=== PATIENT | female | born 1985 | race Caucasian/White ===

== ENCOUNTER 2018-04-18 18:25 | Inpatient (IN) | payer BC ==
[2018-04-18] MEDS ORDERED: PROMETHAZINE 25 MG/ML VIAL ONE (20:20)
[2018-04-18 20:21] LABS: Urine Blood NEGATIVE (NEG); Urine Glucose NEGATIVE (NEG); Urine Protein NEGATIVE (NEG)
[2018-04-18] MEDS ORDERED: FENTANYL CITR 100 MCG/2 ML ONE ×2 (20:21→23:41)
[2018-04-18] MEDS ORDERED: NA CHLORIDE 0.9% 1,000 ML ONE (20:21)
[2018-04-18 20:51] LABS: Urine Bacteria 20-50 /HPF (<20); Urine Culture Reflex Order NOT NEEDED; Urine RBC <5 /HPF (NONE SEEN)
[2018-04-18 20:53] LABS: Absolute Lymphocytes (CBC) 2.1 K/uL (0.7-4.9); Absolute Monocytes 0.8 K/uL (0.1-1.3); Absolute Neutrophil 8.6 K/uL (1.8-8.0); Basophils % 0.3 % (0-1.3); Eosinophils % 0.4 % (0-4.4); Lymphocytes % 17.9 % (15.3-44.8); MCV 90.3 fL (80-100); MPV 8.8 fL (7.6-11.3); Monocytes % 6.7 % (3.3-12.3); RBC Red Blood Cell Count 4.76 M/uL (3.86-4.86)
[2018-04-18 21:14] LABS: ALT/SGPT 26 U/L (12-78); AST/SGOT 13 U/L (15-37); Albumin 4.5 g/dL (3.4-5.0); Alkaline Phosphatase 66 U/L (45-117); BUN Blood Urea Nitrogen 9 mg/dL (7-18); Bicarbonate 28 mmol/L (21-32); Bilirubin Direct 0.2 mg/dL (0-0.2); Bilirubin Total 0.6 mg/dL (0.2-1.0); Glucose Level 91 mg/dL (74-106); Lipase 118 U/L (73-393); Potassium 3.7 mmol/L (3.5-5.1); Protein, Total 8.1 g/dL (6.4-8.2); Sodium Level 135 mmol/L (136-145)
--- NOTE | 2018-04-18 22:14 | RAD REPORT ---
EXAM DESCRIPTION: CTAbdomen Pelvis W Contrast - 04/18/2018 9:59 pm CLINICAL HISTORY: Abdominal pain. ABD PAIN COMPARISON: <Comparisons> TECHNIQUE: Biphasic CT imaging of the abdomen and pelvis was performed with 100 ml non-ionic IV cont rast. All CT scans are performed using dose optimization technique as appropriate and may include automated exposure control or mA/KV adjustment according to patient size. FINDINGS: The lung bases are clear. The liver, spleen, pancreas, adrenal glands and kidneys are within normal limits. No bowel obstruction, free air, free fluid or abscess. Prominent sigmoid diverticulosis is present wi thout diverticulitis. The appendix is dilated to 17 mm and inflamed compatible with acute appendiciti s. No evidence of significant lymphadenopathy. No suspicious bony findings. IMPRESSION: Acute appendicitis.
--- NOTE | 2018-04-18 22:28 | ER ---
Nurse's Notes [facility] Name: Kitty Tucker Age: 32 yrs Sex: Female : 1985 Arrival Date: 04/18/2018 Time: 18:28 Bed 19 Private MD: Reynold Larson E Diagnosis: Acute appendicitis Presentation: 04/18 18:40 Presenting complaint: Patient states: RLQ Abdominal pain since 0300 this morning. aj1 Reports nausea, Denies vomiting, diarrhea, fever. Transition of care: patient was not received from another setting of care. Onset of symptoms was April 18, 2018 at 03:00. Risk Assessment: Do you want to hurt yourself or someone else? Patient reports no desire to harm self or others. Initial Sepsis Screen: Does the patient meet any 2 criteria? No. Patient's initial sepsis screen is negative. Does the patient have a suspected source of infection? No. Patient's initial sepsis screen is negative. Care prior to arrival: None. 18:40 Method Of Arrival: Ambulatory aj1 18:40 Acuity: YAJAIRA 3 aj1 Triage Assessment: 18:42 General: Appears in no apparent distress. comfortable, Behavior is calm, cooperative, aj1 appropriate for age. Pain: Complains of pain in right lower quadrant Pain radiates to abdomen Pain currently is 7 out of 10 on a pain scale. Quality of pain is described as shooting. Neuro: Level of Consciousness is awake, alert, obeys commands. Cardiovascular: Patient's skin is warm and dry. Respiratory: Airway is patent Respiratory effort is even, unlabored, Respiratory pattern is regular, symmetrical. GI: Abdomen is flat, non-distended, Reports lower abdominal pain, nausea, Patient currently denies diarrhea, vomiting. Derm: Skin is pink, warm \T\ dry. normal. 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 - Social history:: Smoking status: Patient uses tobacco products, smokes one-half pack cigarettes per day. - Ebola Screening: : Patient denies travel to an Ebola-affected area in the 21 days before illness onset. Screenin:44 Abuse screen: Denies threats or abuse. Denies injuries from another. Nutritional lp1 screening: No deficits noted. Tuberculosis screening: No symptoms or risk factors identified. Fall Risk None identified. Assessment: 20:00 General: Appears uncomfortable, Behavior is calm, cooperative, appropriate for age. lp1 Pain: Complains of pain in right upper quadrant and right lower quadrant Pain currently is 5 out of 10 on a pain scale. Quality of pain is described as aching, Alleviated by heat application. Neuro: Level of Consciousness is awake, alert, obeys commands. Cardiovascular: Patient's skin is warm and dry. Respiratory: Respiratory effort is even, unlabored. GI: Abdomen is non-distended, Bowel sounds present X 4 quads. Abdomen is tender to palpation in right upper quadrant and right lower quadrant. : Denies burning with urination. EENT: No signs and/or symptoms were reported regarding the EENT system. Derm: Skin is pink, warm \T\ dry. Musculoskeletal: Circulation, motion, and sensation intact. 20:10 Reassessment: CT notified patient completing oral contrast. lp1 21:30 Reassessment: Patient appears in no apparent distress at this time. No changes from lp1 previously documented assessment. Patient and/or family updated on plan of care and expected duration. Pain level reassessed. Aware of CT coming soon. 22:30 Reassessment: Patient appears in no apparent distress at this time. Patient and/or lp1 family updated on plan of care and expected duration. Pain level reassessed. Patient is alert, oriented x 3, equal unlabored respirations, skin warm/dry/pink. Patient states pain tolerable at this time. 23:14 Reassessment: OR nurse at bedside to transport patient. lp1 Vital Signs: 18:42 BP 134 / 94; Pulse 93; Resp 18; Temp 98.4; Pulse Ox 97% on R/A; Weight 77.11 kg (R); aj1 Height 5 ft. 6 in. (167.64 cm) (R); Pain 7/10; 20:45 BP 128 / 96; Pulse 74; Resp 16; Pulse Ox 98% on R/A; lp1 21:44 BP 130 / 90; Pulse 85; Resp 18; Pulse Ox 100% on R/A; lp1 23:00 BP 130 / 87; Pulse 79; Resp 16; Pulse Ox 100% on R/A; lp1 18:42 Body Mass Index 27.44 (77.11 kg, 167.64 cm) aj1 ED Course: 18:28 Patient arrived in ED. jb7 18:29 Reynold Larson MD is Private Physician. jb7 18:42 Triage completed. aj1 18:42 Arm band placed on Patient placed in waiting room, Patient notified of wait time. aj1 19:34 [facility] Tub[facility]C [facility] snw 19:34 Mp Buchnaan MD is Attending Physician. snw 19:36 Komal Gonzales RN is Primary Nurse. lp1 20:30 Inserted saline lock: 20 gauge in right antecubital area, using aseptic technique. lp1 Blood collected. 20:44 Patient has correct armband on for positive identification. Placed in gown. Call light lp1 in reach. Pulse ox on. NIBP on. 21:[address] via wheelchair. lp1 21:59 CT Abd/Pelvis - W/Contrast In Process Unspecified. EDMS 22:26 Ronn Esquivel MD is Hospitalizing Provider. snw 23:07 No provider procedures requiring assistance completed. Patient admitted, IV remains in lp1 place. Administered Medications: 20:30 Drug: NS 0.9% 1000 ml Route: IV; Rate: 125 ml/hr; Site: right antecubital; lp1 23:07 Follow up: IV Status: Infusion continued upon admission lp1 20:30 Drug: fentaNYL (PF) 25 mcg Route: IVP; Site: right antecubital; lp1 21:42 Follow up: Response: Pain is decreased lp1 20:30 Drug: Phenergan 6.25 mg Route: IVP; Site: right antecubital; lp1 21:42 Follow up: Response: Nausea is decreased lp1 22:55 Drug: Mefoxin 1 grams Route: IVPB; Infused Over: 30 mins; Site: right antecubital; lp1 23:07 Follow up: Response: No adverse reaction; IV Status: Completed infusion lp1 Outcome: 22:27 Decision to Hospitalize by Provider. snw 23:07 Condition: stable lp1 23:07 Instructed on the need for admit. 23:14 Admitted to OR accompanied by nurse, family with patient, via stretcher, with chart. lp1 23:15 Patient left the ED. lp1 Signatures: Dispatcher [employer] EDVijaya Muniz RN RN aj1 Shea Tubbs, CALKER-C CALKER-Csnw Komal Gonzales RN RN lp1 Rafa Corbin jb7
--- NOTE | 2018-04-18 22:28 | EDPHYS ---
Physician Documentation [facility] Name: Kitty Tucker Age: 32 yrs Sex: Female : 1985 Arrival Date: 04/18/2018 Time: 18:28 Bed 19 Private MD: Reynold Larson E ED Physician Mp Buchanan HPI: 04/18 20:02 This 32 yrs old Female presents to ER via Ambulatory with complaints of snw Abdominal Pain. 20:02 The patient presents with abdominal pain right lower quadrant. Onset: The snw symptoms/episode began/occurred suddenly, at 03:00, and became worse. The symptoms do not radiate. The symptoms are described as steady. Severity of pain: At its worst the pain was moderate. The patient has not experienced similar symptoms in the past. The patient has not recently seen a physician. x 7 mo. 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 - Social history:: Smoking status: Patient uses tobacco products, smokes one-half pack cigarettes per day. - Ebola Screening: : Patient denies travel to an Ebola-affected area in the 21 days before illness onset. ROS: 20:02 Constitutional: Negative for fever, chills, and weight loss, Eyes: Negative for injury, snw pain, redness, and discharge, ENT: Negative for injury, pain, and discharge, Neck: Negative for injury, pain, and swelling, Cardiovascular: Negative for chest pain, palpitations, and edema, Respiratory: Negative for shortness of breath, cough, wheezing, and pleuritic chest pain, Back: Negative for injury and pain, : Negative for injury, bleeding, discharge, and swelling, MS/Extremity: Negative for injury and deformity, Skin: Negative for injury, rash, and discoloration, Neuro: Negative for headache, weakness, numbness, tingling, and seizure. 20:02 Abdomen/GI: Positive for abdominal pain. Exam: 20:01 Constitutional: This is a well developed, well nourished patient who is awake, alert, snw and in no acute distress. Head/Face: Normocephalic, atraumatic. Eyes: Pupils equal round and reactive to light, extra-ocular motions intact. Lids and lashes normal. Conjunctiva and sclera are non-icteric and not injected. Cornea within normal limits. Periorbital areas with no swelling, redness, or edema. ENT: Nares patent. No nasal discharge, no septal abnormalities noted. Tympanic membranes are normal and external auditory canals are clear. Oropharynx with no redness, swelling, or masses, exudates, or evidence of obstruction, uvula midline. Mucous membranes moist. Neck: Trachea midline, no thyromegaly or masses palpated, and no cervical lymphadenopathy. Supple, full range of motion without nuchal rigidity, or vertebral point tenderness. No Meningismus. Chest/axilla: Normal chest wall appearance and motion. Nontender with no deformity. No lesions are appreciated. Cardiovascular: Regular rate and rhythm with a normal S1 and S2. No gallops, murmurs, or rubs. Normal PMI, no JVD. No pulse deficits. Respiratory: Lungs have equal breath sounds bilaterally, clear to auscultation and percussion. No rales, rhonchi or wheezes noted. No increased work of breathing, no retractions or nasal flaring. Back: No spinal tenderness. No costovertebral tenderness. Full range of motion. Skin: Warm, dry with normal turgor. Normal color with no rashes, no lesions, and no evidence of cellulitis. MS/ Extremity: Pulses equal, no cyanosis. Neurovascular intact. Full, normal range of motion. Neuro: Awake and alert, GCS 15, oriented to person, place, time, and situation. Cranial nerves II-XII grossly intact. Motor strength 5/5 in all extremities. Sensory grossly intact. Cerebellar exam normal. Normal gait. 20:01 Abdomen/GI: Inspection: abdomen appears normal, Bowel sounds: normal, Palpation: moderate abdominal tenderness, in the right upper quadrant and right lower quadrant. Vital Signs: 18:42 BP 134 / 94; Pulse 93; Resp 18; Temp 98.4; Pulse Ox 97% on R/A; Weight 77.11 kg (R); aj1 Height 5 ft. 6 in. (167.64 cm) (R); Pain 7/10; 20:45 BP 128 / 96; Pulse 74; Resp 16; Pulse Ox 98% on R/A; lp1 21:44 BP 130 / 90; Pulse 85; Resp 18; Pulse Ox 100% on R/A; lp1 23:00 BP 130 / 87; Pulse 79; Resp 16; Pulse Ox 100% on R/A; lp1 18:42 Body Mass Index 27.44 (77.11 kg, 167.64 cm) aj1 MDM: 19:35 Patient medically screened. snw 22:07 Data reviewed: vital signs, nurses notes. Data interpreted: Pulse oximetry: on room air snw is 100 %. Interpretation: normal. Counseling: I had a detailed discussion with the patient and/or guardian regarding: the historical points, exam findings, and any diagnostic results supporting the discharge/admit diagnosis, the presence of at least one elevated blood pressure reading (>120/80) during this emergency department visit, lab results, radiology results. ED course: just returned per W/C from CT. 22:25 Physician consultation: Ronn Esquivel MD was called at 22:25, was contacted at 22:26, snw regarding admission, patient's condition. 04/18 19:17 Order name: Urine Culture [facility] 04/18 19:17 Order name: Urine Microscopic Only; Complete Time: 21:06 [facility] 04/18 19:55 Order name: Basic Metabolic Panel; Complete Time: 21:14 [facility] 04/18 19:55 Order name: CBC with Diff; Complete Time: 21:06 [facility] 04/18 19:55 Order name: Creatinine for Radiology; Complete Time: 21:13 [facility] 04/18 19:55 Order name: Hepatic Function; Complete Time: 21:14 [facility] 04/18 19:55 Order name: Lipase; Complete Time: 21:14 [facility] 04/18 19:55 Order name: CT Abd/Pelvis - W/Contrast; Complete Time: 22:17 [facility] 04/18 20:14 Order name: Urine Dipstick--Ancillary (enter results) ms 04/18 20:14 Order name: Urine --Ancillary (enter results) ms 04/18 20:14 Order name: Urine Dipstick-Ancillary; Complete Time: 20:22 [facility] 04/18 20:14 Order name: Urine --Ancillary; Complete Time: 20:22 [facility] 04/18 19:17 Order name: Urine Test (obtain specimen); Complete Time: 20:15 snw 04/18 19:17 Order name: Urine Dipstick-Ancillary (obtain specimen); Complete Time: 20:15 snw 04/18 19:55 Order name: IV Saline Lock; Complete Time: 20:42 snw 04/18 19:55 Order name: Labs collected and sent; Complete Time: 20:42 snw 04/18 22:18 Order name: NPO; Complete Time: 22:47 snw Administered Medications: 20:30 Drug: NS 0.9% 1000 ml Route: IV; Rate: 125 ml/hr; Site: right antecubital; lp1 23:07 Follow up: IV Status: Infusion continued upon admission lp1 20:30 Drug: fentaNYL (PF) 25 mcg Route: IVP; Site: right antecubital; lp1 21:42 Follow up: Response: Pain is decreased lp1 20:30 Drug: Phenergan 6.25 mg Route: IVP; Site: right antecubital; lp1 21:42 Follow up: Response: Nausea is decreased lp1 22:55 Drug: Mefoxin 1 grams Route: IVPB; Infused Over: 30 mins; Site: right antecubital; lp1 23:07 Follow up: Response: No adverse reaction; IV Status: Completed infusion lp1 Disposition: 04/19 03:05 Co-signature as Attending Physician, Mp Buchanan MD. [facility] Disposition: 04/18/18 22:27 Hospitalization ordered by Ronn Esquivel for Inpatient Admission. Preliminary diagnosis is Acute appendicitis. - [facility]. - Status is Inpatient Admission. lp1 - Condition is Stable. - Problem is new. - Symptoms are unchanged. UTI on Admission? No Signatures: Dispatcher [employer] EDWI Vijaya Medel RN RN aj1 Callie Tompkins RN RN kl Lam, Pin, MD MD pkl Shea Tubbs, SAP PROJECT MANAGER-C SAP PROJECT MANAGER-Komal Beatyt RN RN lp1 Corrections: (The following items were deleted from the chart) 04/18 22:54 22:27 Hospitalization Ordered by Ronn Esquivel MD for Inpatient Admission. Preliminary kl diagnosis is Acute appendicitis. Bed requested for Telemetry/MedSurg (Inpatient). Status is Inpatient Admission. Condition is Stable. Problem is new. Symptoms are unchanged. UTI on Admission? No. snw 22:55 22:54 04/18/2018 22:27 Hospitalization Ordered by Ronn Esquivel MD for Inpatient kl Admission. Preliminary diagnosis is Acute appendicitis. Bed requested for Telemetry/MedSurg (Inpatient). Status is Inpatient Admission. Condition is Stable. Problem is new. Symptoms are unchanged. UTI on Admission? No. kl 23:15 22:55 04/18/2018 22:27 Hospitalization Ordered by Ronn Esquivel MD for Inpatient lp1 Admission. Preliminary diagnosis is Acute appendicitis. Bed requested for [facility]. Status is Inpatient Admission. Condition is Stable. Problem is new. Symptoms are unchanged. UTI on Admission? No. kl
[2018-04-18] MEDS ORDERED: CEFOXITIN/SWI 1gm 1 GM/10 ML SYR ONE (22:52)
[2018-04-18 23:21] VITALS: O2SAT 100
[2018-04-18] MEDS ORDERED: Ringers Lactate 1,000 ML IV ONE (23:30)
[2018-04-18] MEDS ORDERED: SUCCINYLCHOLINE 20 MG/ML (10 ML) IV ONE (23:38)
[2018-04-18] MEDS ORDERED: PROPOFOL 200 MG/20 ML VIAL IV ONE (23:41)
[2018-04-18] MEDS ORDERED: MIDAZOLAM HCL 2 MG/2 ML INJ ONE (23:41)
--- NOTE | 2018-04-18 23:43 | P.BOP ---
Preoperative diagnosis: acute appendicitis Postoperative diagnosis: SAME Primary procedure: Laparoscopic appendectomy Estimated blood loss: <10cc Specimen: nicolas Findings: as above Anesthesia: General Complications: None Transferred to: Recovery Room Condition: Good
[2018-04-19] MEDS ORDERED: ROCURONIUM 50 MG/5 ML VIAL IV ONE (00:03)
[2018-04-19] MEDS ORDERED: FENTANYL CITR 100 MCG/2 ML ONE (00:04)
[2018-04-19] MEDS ORDERED: NEOSTIGMINE 1 MG/ML -5 ML SYRINGE ONE (00:10)
[2018-04-19] MEDS ORDERED: GLYCOPYRROLATE 0.2 MG/ML SYR ONE (00:10)
[2018-04-19] MEDS ORDERED: ONDANSETRON HCL 40 MG/20 ML VIAL ONE (00:21)
[2018-04-19] MEDS ORDERED: KETOROLAC 30 MG/ML INJ ONE (00:34)
[2018-04-19] MEDS: MEPERIDINE HCL 50 MG/ML AMP ONE ×4 (00:35→00:52)
[2018-04-19] MEDS ORDERED: SODIUM CHLORIDE 0.9% 10ML INJ IV PRN (00:48)
[2018-04-19] MEDS ORDERED: HYDROCODONE/APAP 7.5/325 MG TAB PO PRN (00:48)
[2018-04-19] MEDS ORDERED: NA CHLORIDE 0.9% 1,000 ML IV SCH (00:48)
[2018-04-19] MEDS ORDERED: Morphine 2 MG/2 ML SYR IV PRN (00:48)
[2018-04-19] MEDS ORDERED: CEFOXITIN 1 GM in NA CHLORIDE 0.9% 100 ML IVPB SCH (00:48)
[2018-04-19] MEDS ORDERED: ONDANSETRON 4 MG/2 ML VIAL IV PRN (00:48)
[2018-04-19] MEDS ORDERED: Ringers Lactate 1,000 ML IV ONE (00:58)
--- NOTE | 2018-04-19 01:23 | HP ---
Date of Admission: 04/18/2018 Reason For Service: Right lower quadrant pain. Indications: This is the case of a 32-year-old patient, came to the ER complaining of right lower qu adrant tenderness with guarding, became worse since this morning. She states some nausea, some vomit ing. Denies any dysuria, hematuria, hematochezia, or melena. Denies any recent traveling out of the country. Denies any family member sick at home. She is in room #7, with no c omplications. Allergies: NONE. Medications: Adderall. Past Medical History: ADD. Family History: Noncontributory. Social History: She does not drink alcohol. She smokes half a pack a day. Review of Systems: Constitutional: Denies any fevers or chills. Gastrointestinal: As above. Respiratory: Denies any shortness of breath. Genitourinary: Denies any dysuria, hematuria, any vaginal discharge. Physical Examination: General: The patient is awake and alert. HEENT: Pupils are equal and reactive, anicteric. Neck: Supple. Chest: Clear. Abdomen: Right lower quadrant tenderness with guarding and rebound. Psoas sign positive. Rovsing s ign positive. Pelvic: Deferred. Breasts: Deferred. Rectal: Deferred. Extremities: Good capillary refill. Neuro: Cranial nerves 2 through 12 grossly within normal limits. Laboratory Data: Blood work shows WBC count of 11.5 with hemoglobin of 14.8, sodium is 135, creatini ne is 0.7. CAT scan of the abdomen and pelvis shows acute appendicitis. Assessment And Plan: A 32-year-old patient with acute appendicitis. Benefits, alternatives, and ris ks of laparoscopic, possible open appendectomy, were fully explained which include but not limited to infection, bleeding, damage to adjacent structures, anesthesia complication, myocardial infarction, even . She also understands this may not relieve any symptoms. She might need more than one enriquez rgical intervention. She understood and signed a consent. BIRDIE/ABIMBOLA Voice ID: [id number]
[2018-04-19 01:41] VITALS: BMI 26.6
--- NOTE | 2018-04-19 02:02 | OP ---
Date of Procedure: 04/19/2018 Surgeon: Ronn Esquivel MD Critical Care Nurse Specialist: None. Diagnosis: Acute appendicitis. Postoperative Diagnosis: Acute appendicitis. Procedure: Laparoscopic appendectomy. Estimated Blood Loss: Less than 10 cc. Anesthesia: General plus local. Indication For Procedure: This is the case of a 33-year-old patient, comes to us with above diagnosi s, emergently brought to the operating room with benefits, alternatives, and risks fully explained to the patient for laparoscopic possible open appendectomy which include but not limited to infection, bleeding, damage to adjacent structures, anesthesia complications, MA, or even . She also under stands this may not relieve any symptoms. She might need more than one surgical intervention. She u nderstood and signed a consent. Description Of Procedure: The patient was brought to the operating room and placed in supine positio n. Anesthesia was done without complication. Abdominal area was prepped and draped in usual sterile fashion. Marcaine 0.5% injected for local anesthetic, followed by sharp incision of the skin in the infraumbilical region. Incision was carried down to the fascia, which was opened under direct visio n. Peritoneum was encountered, opened under direct vision. Vicryl #1 placed inside the fascia. Has son trocar was carefully introduced. Pneumoperitoneum was obtained. I placed 2 more trocars, 5 mm e ach one of them in the suprapubic and left lower quadrant under direct visualization. Appendix was t hen visualized after no bleeding was obtained. We noticed an inflamed appendix. The base of the nicolas endix looked fair, so we created a window in the base of the appendix, transected that with an Endo G IA 45 mm 3.5 in the mesoappendix with an Endo YOON 45 mm 2.5. Appendix was removed from the abdominal cavity using an EndoCatch through the umbilical incision. The area was inspected once again. No osmel wel leak, no bleeding at that moment. After irrigation and suction, I visualized again for hemostasi s, and then we proceeded to remove the trocars under direct vision. Deflated the pneumoperitoneum an d closed the fascia with #1 Vicryl. Irrigated the subcutaneous tissue, closed that with 3-0 chromic, and then the skin with zhanna. Sponge count and instrument counts were correct. The patient rudy ated the procedure well. The patient was sent to Recovery in stable condition. HM/MODL Voice ID: [id number] Report ID: [id number]
[2018-04-19] MEDS ORDERED: CEFOXITIN/SWI 1gm 1 GM/10 ML SYR ONE (04:29)
[2018-04-19 06:35] LABS: Absolute Lymphocytes (CBC) 1.6 K/uL (0.7-4.9); Absolute Monocytes 0.7 K/uL (0.1-1.3); Absolute Neutrophil 6.1 K/uL (1.8-8.0); Basophils % 0.2 % (0-1.3); Eosinophils % 0.4 % (0-4.4); Hematocrit 35.1 % (36.0-45.0); Lymphocytes % 19.2 % (15.3-44.8); MCH 31.4 pg (27.0-35.0); MCV 89.9 fL (80-100); MPV 8.7 fL (7.6-11.3)
[2018-04-19 06:49] LABS: BUN Blood Urea Nitrogen 7 mg/dL (7-18); Bicarbonate 25 mmol/L (21-32); Glucose Level 91 mg/dL (74-106); Sodium Level 139 mmol/L (136-145)
[2018-04-19] MEDS ORDERED: MORPHINE 4 MG/ML SYR IV PRN (07:33)
[2018-04-19] MEDS ORDERED: PANTOPRAZOLE 40 MG INJ IVP SCH (09:00)
[2018-04-19] MEDS ORDERED: CEFOXITIN/SWI 1gm 1 GM/10 ML SYR IV SCH (12:00)
[2018-04-19 12:52] VITALS: BP 122/82; TEMP 98.8
--- NOTE | 2018-04-19 13:16 | P.DS ---
Admission Date: 04/18/18 Discharge Date: 04/19/18 Disposition: ROUTINE DISCHARGE Discharge Condition: GOOD Hospital Course: unremarkable Vital Signs/Physical Exam: Temp Pulse Resp BP Pulse Ox 98.8 F 81 14 122/82 100 04/19/18 11:50 04/19/18 11:50 04/19/18 11:50 04/19/18 11:50 04/19/18 07:18 General: Alert, In no apparent distress, Oriented x3, Cooperative HEENT: PERRLA, EOMI Neck: Supple Cardiovascular: No edema Gastrointestinal: Soft and benign Musculoskeletal: No erythema, No tenderness, No warmth Integumentary: No erythema Neurological: Normal speech Laboratory Data at Discharge: WBC 8.5 K/uL (4.3-10.9) D 04/19/18 05:52 Hgb 12.2 g/dL (12.0-15.0) D 04/19/18 05:52 Hct 35.1 % (36.0-45.0) L D 04/19/18 05:52 Plt Count 227 K/uL (152-406) 04/19/18 05:52 Sodium 139 mmol/L (136-145) 04/19/18 05:52 Potassium 4.0 mmol/L (3.5-5.1) 04/19/18 05:52 BUN 7 mg/dL (7-18) 04/19/18 05:52 Creatinine 0.50 mg/dL (0.55-1.3) L 04/19/18 05:52 Glucose 91 mg/dL (74-106) 04/19/18 05:52 Total Bilirubin 0.6 mg/dL (0.2-1.0) 04/18/18 20:30 AST 13 U/L (15-37) L 04/18/18 20:30 ALT 26 U/L (12-78) 04/18/18 20:30 Alkaline Phosphatase 66 U/L (45-117) 04/18/18 20:30 Lipase 118 U/L (73-393) 04/18/18 20:30 Home Medications: Vitamin [ VITAMIN*] 1 tab PO DAILY 09/28/17 Amox/Clavulanate [Augmentin 875-125 Tab] 1 each PO BID #10 tab 04/19/18 Codeine/APAP [Tylenol W/Codeine #3 tab] 1 tab PO Q4HP PRN #30 tab 04/19/18 Dextroamphetamine/Amphetamine [Adderall 20 mg Tablet] 20 tab PO BID 04/19/18 New Medications: Amox/Clavulanate [Augmentin 875-125 Tab] 1 each PO BID #10 tab Codeine/APAP [Tylenol W/Codeine #3 tab] 1 tab PO Q4HP PRN #30 tab PRN Reason: Pain Patient Discharge Instructions: keep area dry for 24h then may shower. Diet: Regular Activity: No lifting more than 10 lbs Followup: Ronn Esquivel MD [ACTIVE - CAN ADMIT] - 04/21/18 (Call the office on Saturday to make a follow-up appointment.)
== END 2018-04-19 13:10 | disposition home or self-care (01) | DRG 343 ==
LOC: ER 18:25 → ERHOLD 22:28 → 2ND-WC 04-19 01:18
PROVIDERS: ADMIT Surgery; ATTEND Surgery
PROC: 0DTJ4ZZ Resection of Appendix, Percutaneous Endoscopic Approach (ICD-10-PCS; principal; 2018-04-18 23:00)
DX: K35.80 Unspecified acute appendicitis (principal); F98.8 Other specified behavioral and emotional disorders with onset usually occurring in childhood and adolescence; F17.210 Nicotine dependence, cigarettes, uncomplicated
CPT/HCPCS: 36415; 74177; 80048; 80076; 81003; 81015; 81025; 83690; 85025; 87086; 87088; 88304; 96361; 96374; 96375; 99285; C9113; J0330; J0694; J2175; J2250; J2270; J2405; J2550; J2710; J3010; J7030; Q9967

== ENCOUNTER 2018-08-04 03:35 | Emergency (ER) | payer BC ==
[2018-08-04 04:37] LABS: Absolute Lymphocytes (CBC) 1.1 K/uL (0.7-4.9); Absolute Neutrophil 16.2 K/uL (1.8-8.0); Basophils % 0.3 % (0-1.3); Hematocrit 38.9 % (36.0-45.0); Lymphocytes % 5.9 % (15.3-44.8); MCH 30.8 pg (27.0-35.0); MCV 90.1 fL (80-100); MPV 9.2 fL (7.6-11.3); Monocytes % 5.5 % (3.3-12.3); RBC Red Blood Cell Count 4.32 M/uL (3.86-4.86)
[2018-08-04 05:03] LABS: ALT/SGPT 32 U/L (12-78); AST/SGOT 18 U/L (15-37); Albumin 3.9 g/dL (3.4-5.0); Alkaline Phosphatase 58 U/L (45-117); BUN Blood Urea Nitrogen 8 mg/dL (7-18); Bicarbonate 27 mmol/L (21-32); Bilirubin Direct 0.2 mg/dL (0-0.2); Bilirubin Total 0.7 mg/dL (0.2-1.0); Glucose Level 123 mg/dL (74-106); Lipase 103 U/L (73-393); Potassium 3.6 mmol/L (3.5-5.1); Protein, Total 7.2 g/dL (6.4-8.2); Sodium Level 137 mmol/L (136-145)
[2018-08-04 05:19] LABS: Blood Morphology Comment NOT SEEN (NOT SEEN); Platelet Estimate ADEQ; Urine White Blood Cell Casts OK
[2018-08-04 05:20] LABS: Urine Blood TRACE (NEG); Urine Glucose NEGATIVE (NEG); Urine Protein NEGATIVE (NEG); Urine pH 7.5 (5.0-7.0)
[2018-08-04] MEDS ORDERED: CIPROFLOXACIN 400mg IV 400 MG/200 ML BAG IV ONE (05:56)
[2018-08-04] MEDS ORDERED: METRONIDAZOLE 500mg IVPB 500 MG/100 ML BAG IV ONE (05:57)
[2018-08-04 06:13] LABS: Urine Bacteria >50 /HPF (<20); Urine Culture Reflex Order REFLEXED; Urine RBC NONE SEEN /HPF (NONE SEEN)
--- NOTE | 2018-08-04 06:17 | EDPHYS ---
Physician Documentation [facility] Name: Kitty Tucker Age: 33 yrs Sex: Female : 1985 Arrival Date: 08/04/2018 Time: 03:36 Bed 14 Private MD: ED Physician Marco A Godinez HPI: 08/04 04:53 This 33 yrs old Female presents to ER via Ambulatory with complaints of rn Abdominal Cramping. 04:53 The patient presents with abdominal pain in the lower abdomen. Onset: The rn symptoms/episode began/occurred yesterday. The symptoms do not radiate. Associated signs and symptoms: Pertinent positives: nausea and vomiting, Pertinent negatives: anorexia, blood in stools, chest pain, constipation, diarrhea, dysuria, fever, headache, hematuria, vaginal discharge, vomiting blood. The symptoms are described as achy, crampy. Modifying factors: The symptoms are alleviated by nothing, the symptoms are aggravated by touching the area, walking. Severity of pain: At its worst the pain was moderate in the emergency department the pain has improved. The patient has experienced a previous episode. REports lower abd cramping, began yesterday at 5PM, no fever, + nausea and vomiting, no diarrhea, tried to use bathroom but didn't help, reports about mid-cycle, no vaginal bleeding, no hematuria, no hx of kidney stones. 1 similar episode in past when had appendicitis. Hurts both RLQ and LLQ, comes in waves. . 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 - Social history:: Smoking status: Patient uses tobacco products, cigars. - Ebola Screening: : No symptoms or risks identified at this time. - Family history:: not pertinent. - Hospitalizations: : No recent hospitalization is reported. ROS: 04:53 Constitutional: Negative for fever, chills, and weight loss, Eyes: Negative for injury, rn pain, redness, and discharge, Neck: Negative for injury, pain, and swelling, Cardiovascular: Negative for chest pain, palpitations, and edema, Respiratory: Negative for shortness of breath, cough, wheezing, and pleuritic chest pain, Abdomen/GI: + lower abd pain and nausea/vomiting MS/Extremity: Negative for injury and deformity, Skin: Negative for injury, rash, and discoloration, Neuro: Negative for headache, weakness, numbness, tingling, and seizure. Exam: 04:53 Constitutional: This is a well developed, well nourished patient who is awake, alert, rn and in no acute distress. Head/Face: Normocephalic, atraumatic. ENT: MMM Cardiovascular: Regular rate and rhythm with a normal S1 and S2. No gallops, murmurs, or rubs. Normal PMI, no JVD. No pulse deficits. Respiratory: Lungs have equal breath sounds bilaterally, clear to auscultation and percussion. No rales, rhonchi or wheezes noted. No increased work of breathing, no retractions or nasal flaring. Abdomen/GI: soft, mild RLQ and LLQ tenderness Back: No spinal tenderness. No costovertebral tenderness. Full range of motion. Skin: Warm, dry, no evidence of cellulitis. MS/ Extremity: Pulses equal, no cyanosis. Neurovascular intact. Full, normal range of motion. Equal circumference. Neuro: Awake and alert, GCS 15, oriented to person, place, time, and situation. Cranial nerves II-XII grossly intact. Motor strength 5/5 in all extremities. Sensory grossly intact. Vital Signs: 03:40 BP 142 / 80; Pulse 105; Resp 19 S; Temp 98.8(O); Pulse Ox 97% on R/A; Weight 74.84 kg cc3 (R); Height 5 ft. 6 in. (167.64 cm) (R); Pain 8/10; 04:30 BP 135 / 95; Pulse 99; Resp 20 S; Pulse Ox 99% on R/A; cc3 05:43 BP 128 / 99; Pulse 101; Resp 18 S; Pulse Ox 98% on R/A; cc3 06:15 BP 138 / 93; Pulse 107; Resp 20 S; Pulse Ox 99% on R/A; cc3 03:40 Body Mass Index 26.63 (74.84 kg, 167.64 cm) cc3 MDM: 04:19 Patient medically screened. rn 06:12 Differential diagnosis: diverticulitis, Ectopic , non-specific abd pain, rn Ovarian Torsion, Ureterolithiasis, urinary tract infection, ovarian cyst, ruptured ovarian cyst. Data reviewed: vital signs, nurses notes, lab test result(s), radiologic studies, CT scan, ultrasound, and as a result, I will admit patient. Counseling: I had a detailed discussion with the patient and/or guardian regarding: the historical points, exam findings, and any diagnostic results supporting the discharge/admit diagnosis, lab results, radiology results, the need for further work-up and treatment in the hospital. Response to treatment: the patient's symptoms have mildly improved after treatment. Refusal of service: The patient/guardian displays adequate decision making capability and despite a detailed discussion of alternatives, benefits, risks, and consequences refuses: Admission to the hospital for further work-up and treatment. ED course: After long discussion with patient, I recommended observation in hospital due to combination of ruptured ovarian cyst as well as diverticulitis. Patient states just came back from vacation, is supposed to work, works, can't commit to staying for 1-2 days. States wants to go home, will return if worsens or cannot tolerate PO. Return precautions explained and understood. . 08/04 04:11 Order name: Basic Metabolic Panel; Complete Time: 05: 08/04 04:11 Order name: CBC with Diff; Complete Time: 05: 08/04 04:11 Order name: Creatinine for Radiology; Complete Time: 05: 08/04 04:11 Order name: Hepatic Function; Complete Time: : 08/04 04:11 Order name: Lipase; Complete Time: 05: 08/04 04:20 Order name: Urine Dipstick--Ancillary (enter results); Complete Time: 05: tn 08/04 04:20 Order name: Urine --Ancillary (enter results); Complete Time: 05: tn 08/04 04:28 Order name: CT Abd/Pelvis - W/Contrast rn 08/04 05:19 Order name: CBC Smear Scan; Complete Time: 05:27 [facility] 08/04 05:26 Order name: Urine Microscopic Only 08/04 05:41 Order name: Transvaginal Study Probe [facility] 08/04 06:15 Order name: Urine Culture [facility] 08/04 04:03 Order name: Urine Dipstick-Ancillary (obtain specimen); Complete Time: 04:14 bb 08/04 04:03 Order name: Urine Test (obtain specimen); Complete Time: 04:14 bb 08/04 04:11 Order name: IV Saline Lock; Complete Time: 04:25 bb 08/04 04:11 Order name: Labs collected and sent; Complete Time: 04:25 bb Administered Medications: 05:50 Drug: Flagyl 500 mg Volume: 100 ml; Route: IVPB; Rate: 200 ml/hr; Infused Over: 30 cc3 mins; Site: right antecubital; 06:20 Follow up: Response: No adverse reaction; IV Status: Completed infusion; IV Intake: cc3 100ml 06:20 Drug: Demerol 25 mg Route: IVP; Site: right antecubital; cc3 06:30 Drug: Cipro 400 mg Volume: 200 ml; Route: IVPB; Infused Over: 60 mins; Site: right cc3 antecubital; Disposition: 08/04/18 06:16 Discharged to Home. Impression: Hemorrhagic Ovarian Cyst, Diverticulitis of large intestine without perforation or abscess without bleeding. - Condition is Stable. - Discharge Instructions: Diverticulitis, Ovarian Cyst. - Prescriptions for Zofran ODT 4 mg Oral tablet,disintegrating - place 1 tablet by TRANSLINGUAL route every 8 hours As needed; 20 tablet. Flagyl 500 mg Oral Tablet - take 1 tablet by ORAL route every 8 hours for 10 days; 30 tablet. Tylenol- Codeine #3 300-30 mg Oral Tablet - take 1 tablet by ORAL route every 6 hours As needed; 20 tablet. Cipro 500 mg Oral Tablet - take 1 tablet by ORAL route every 12 hours for 10 days; 20 tablet. - Medication Reconciliation Form, Thank You Letter, Antibiotic Education, Prescription Opioid Use, Work release form form. - Follow up: Reynold Cat MD; When: As needed; Reason: Recheck today's complaints, Re-evaluation by your physician. - Problem is new. - Symptoms have improved. Signatures: Dispatcher [employer] EDWY To Pereira RN RN Le Duran RN RN bb Nieto, Roman, MD MD rn Cordel, Charlene cc3 Corrections: (The following items were deleted from the chart) 05:41 04:29 Pelvis Complete+US.TANYA ordered. EDMS EDMS 07:47 06:16 08/04/2018 06:16 Discharged to Home. Impression: Hemorrhagic Ovarian Cyst; sg Diverticulitis of large intestine without perforation or abscess without bleeding. Condition is Stable. Forms are Medication Reconciliation Form, Thank You Letter, Antibiotic Education, Prescription Opioid Use. Follow up: Reynold Cat; When: As needed; Reason: Recheck today's complaints, Re-evaluation by your physician. Problem is new. Symptoms have improved. rn
--- NOTE | 2018-08-04 06:17 | ER ---
Nurse's Notes [facility] Name: Kitty Tucker Age: 33 yrs Sex: Female : 1985 Arrival Date: 08/04/2018 Time: 03:36 Bed 14 Private MD: Diagnosis: Hemorrhagic Ovarian Cyst;Diverticulitis of large intestine without perforation or abscess without bleeding Presentation: 08/04 03:40 Presenting complaint: Patient states: Crampy lower abdominal pain since yesterday cc3 afternoon. Transition of care: patient was not received from another setting of care. Onset of symptoms was August 03, 2018. Risk Assessment: Do you want to hurt yourself or someone else? Patient reports no desire to harm self or others. Initial Sepsis Screen: Does the patient meet any 2 criteria? No. Patient's initial sepsis screen is negative. Does the patient have a suspected source of infection? No. Patient's initial sepsis screen is negative. Care prior to arrival: None. 03:40 Method Of Arrival: Ambulatory cc3 03:40 Acuity: YAJAIRA 3 cc3 Triage Assessment: 03:40 General: Appears in no apparent distress. uncomfortable, Behavior is calm, cooperative, cc3 appropriate for age. Pain: Complains of pain in lower abdomen. EENT: No signs and/or symptoms were reported regarding the EENT system. Neuro: Level of Consciousness is awake, alert, obeys commands, Oriented to person, place, time, situation, Appropriate for age. Cardiovascular: Denies chest pain. Respiratory: Airway is patent Respiratory effort is even, unlabored, Respiratory pattern is regular, symmetrical. GI: Reports lower abdominal pain, since yesterday afternoon. : No signs and/or symptoms were reported regarding the genitourinary system. Derm: No signs and/or symptoms reported regarding the dermatologic system. Musculoskeletal: Circulation, motion, and sensation intact. Range of motion: intact in all extremities. 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 - Social history:: Smoking status: Patient uses tobacco products, cigars. - Ebola Screening: : No symptoms or risks identified at this time. - Family history:: not pertinent. - Hospitalizations: : No recent hospitalization is reported. Screenin:40 Abuse screen: Denies threats or abuse. Denies injuries from another. Nutritional cc3 screening: No deficits noted. Tuberculosis screening: No symptoms or risk factors identified. Fall Risk Ambulatory Aid- None/Bed Rest/Nurse Assist (0 pts). Gait- Normal/Bed Rest/Wheelchair (0 pts) Mental Status- Oriented to own ability (0 pts). Assessment: 04:20 Reassessment: Patient appears in no apparent distress at this time. Patient and/or cc3 family updated on plan of care and expected duration. Pain level reassessed. Patient is alert, oriented x 3, equal unlabored respirations, skin warm/dry/pink. 05:30 Reassessment: Patient appears in no apparent distress at this time. Patient and/or cc3 family updated on plan of care and expected duration. Pain level reassessed. Patient is alert, oriented x 3, equal unlabored respirations, skin warm/dry/pink. 06:16 Reassessment: Patient appears in no apparent distress at this time. Patient and/or cc3 family updated on plan of care and expected duration. Pain level reassessed. Patient is alert, oriented x 3, equal unlabored respirations, skin warm/dry/pink. Patient ordered for discharge home after the IV antibiotics, instructed by Dr. Godinez that she'll go at around 0730H. 07:20 Reassessment: Patient appears in no apparent distress at this time. Patient and/or sg family updated on plan of care and expected duration. Pain level reassessed. Patient is alert, oriented x 3, equal unlabored respirations, skin warm/dry/pink. Vital Signs: 03:40 BP 142 / 80; Pulse 105; Resp 19 S; Temp 98.8(O); Pulse Ox 97% on R/A; Weight 74.84 kg cc3 (R); Height 5 ft. 6 in. (167.64 cm) (R); Pain 8/10; 04:30 BP 135 / 95; Pulse 99; Resp 20 S; Pulse Ox 99% on R/A; cc3 05:43 BP 128 / 99; Pulse 101; Resp 18 S; Pulse Ox 98% on R/A; cc3 06:15 BP 138 / 93; Pulse 107; Resp 20 S; Pulse Ox 99% on R/A; cc3 03:40 Body Mass Index 26.63 (74.84 kg, 167.64 cm) cc3 ED Course: 03:36 Patient arrived in ED. ds1 03:40 Arm band placed on right wrist. Patient notified of wait time. cc3 03:40 Patient has correct armband on for positive identification. Bed in low position. Call cc3 light in reach. Side rails up X 1. Pulse ox on. NIBP on. 03:41 Mela Davison is Primary Nurse. cc3 03:48 Triage completed. cc3 04:19 Marco A Godinez MD is Attending Physician. rn 04:20 Inserted saline lock: 22 gauge in right antecubital area, using aseptic technique. cc3 Blood collected. 05:[address] via wheelchair. kw1 05:24 CT Abd/Pelvis - W/Contrast In Process Unspecified. EDMS 05:26 Patient taken to ultrasound. via wheelchair. kw1 05:42 Transvaginal Study Probe In Process Unspecified. EDMS 06:14 Reynold Cat MD is Referral Physician. rn 07:19 To Pereira RN is Primary Nurse. sg 07:20 Awaiting: IV abx to finish infusing prior to dc to home. sg Administered Medications: 05:50 Drug: Flagyl 500 mg Volume: 100 ml; Route: IVPB; Rate: 200 ml/hr; Infused Over: 30 cc3 mins; Site: right antecubital; 06:20 Follow up: Response: No adverse reaction; IV Status: Completed infusion; IV Intake: cc3 100ml 06:20 Drug: Demerol 25 mg Route: IVP; Site: right antecubital; cc3 06:30 Drug: Cipro 400 mg Volume: 200 ml; Route: IVPB; Infused Over: 60 mins; Site: right cc3 antecubital; Intake: 06:20 IV: 100ml; Total: 100ml. cc3 Outcome: 06:16 Discharge ordered by . rn 07:47 Patient left the ED. sg Signatures: Dispatcher [employer] EDMS To Pereira RN Radha Johnston ds1 Marco A Godinez MD MD rn Wilhelm Callie kw1 Mela Davison cc3 Corrections: (The following items were deleted from the chart) 06:36 03:40 BP 142 / 80; Pulse 105bpm; Resp 19bpm; Spontaneous; Pulse Ox 97% RA; Temp 98.8F cc3 Oral; 74.84 kg Reported; Height 5 ft. 6 in. Reported; BMI: 26.6; cc3
[2018-08-04] MEDS ORDERED: MEPERIDINE HCL 25 MG/0.5 ML ONE (06:35)
[2018-08-04 07:54] VITALS: TEMP 98.8
[2018-08-04 07:58] VITALS: BP 138/93; O2SAT 99
--- NOTE | 2018-08-04 08:01 | RAD REPORT ---
EXAM DESCRIPTION: CT - Abdomen Pelvis W Contrast - 08/04/2018 6:44 am CLINICAL HISTORY: Crampy lower abdominal pain, prior appendectomy A preliminary report was provided at the time of the study and reviewed prior to final report. COMPARISON: CT imaging March 2018 TECHNIQUE: Biphasic, helical CT imaging of the abdomen and pelvis was performed following 100 ml non -ionic IV contrast. Oral contrast was given. All CT scans are performed using dose optimization technique as appropriate and may include automated exposure control or mA/KV adjustment according to patient size. FINDINGS: No suspicious findings in the lung bases. The liver, spleen, and pancreas show no focal findings. Liver attenuation is borderline to mildly fat ty infiltrated. No gallbladder or biliary tree abnormality. Symmetric renal function is seen with no hydronephrosis or suspicious renal mass. No pyelonephritis o r acute renal parenchymal process. Partially filled urinary bladder shows no suspicious finding. No p rimary uterine process. Right ovary is unremarkable. Left ovary contains a 2.3 centimeter cyst. Phleb oliths are seen in the pelvic floor. Stomach and small bowel show no significant findings. Moderate stool volume in the right-side colon e xtending to the splenic flexure. Patient has relatively prominent for age sigmoid diverticulosis. In the mid sigmoid colon there is an 8 centimeter long segment of circumferential wall thickening with e dematous/ inflammatory stranding in the adjacent fat. No free air or abscess. Trace amount of free fl uid is present adjacent to the involved colon and extending into the cul-de-sac. No free air or pneu matosis. No hernia, mass or bulky lymphadenopathy. No suspicious bony findings. IMPRESSION: Moderate severity acute sigmoid diverticulitis. Colon malignancy etiology is not excluded based on imaging but is considered quite unlikely. No mass lesions seen on a March examination. No abscess, free air or other emergent complication. Liver is borderline to mildly fatty infiltrated.
--- NOTE | 2018-08-04 08:05 | RAD REPORT ---
EXAM DESCRIPTION: US - Transvaginal Study Probe - 08/04/2018 5:40 am CLINICAL HISTORY: Abdominal pain and cramping Preliminary findings provided at the time of the study. COMPARISON: Pelvic ultrasound March 2017 TECHNIQUE: Endovaginal sonography was performed. FINDINGS: Nabothian cyst is present. Endometrium is 9 mm in thickness. No endometrial based mass or polyp identifiable. There is a good en dometrium-myometrium interface. In the posterior submucosal myometrium midportion of the uterus there is a 1.2 centimeter rounded area of slightly hypoechoic tissue. This is most likely a small fibroid. No other myometrial mass identifiable. Uterus is 6.5 x 4.1 x 5.6 cm. Right ovary is 3.3 x 1.3 x 2.6 cm. No dominant solid or cystic ovarian or adnexal finding on the righ t. Doppler evaluation shows a normal blood flow pattern of the right ovary. Left ovary is 3.3 x 3.2 x 2.8 cm. There is a 2.2 centimeter left ovarian cyst. A septation is present . There is echogenic debris within this cyst and this is likely sequela of intracyst hemorrhage. Dopp ler evaluation shows good blood flow of the ovarian stroma. No blood or fluid in the cul-de-sac. IMPRESSION: Approximately 2.2 centimeter mildly complex ovarian cyst. No other significant ovarian o r adnexal finding. No significant uterine finding. The patient does appear to have a 12 millimeter posterior fundal fibr oid abutting the sub mucosal margin. No primary endometrial process.
== END 2018-08-04 07:47 | disposition home or self-care (01) ==
LOC: ER 03:35
DX: N83.209 Unspecified ovarian cyst, unspecified side (principal); K57.32 Diverticulitis of large intestine without perforation or abscess without bleeding; F90.9 Attention-deficit hyperactivity disorder, unspecified type; Z72.0 Tobacco use
CPT/HCPCS: 36415; 74177; 76830; 80048; 80076; 81003; 81015; 81025; 83690; 85025; 87086; 87088; 96365; 96375; 99284; J0744; J2175; Q9967

== ENCOUNTER 2019-04-24 18:11 | Emergency (ER) | payer BC ==
--- NOTE | 2019-04-24 19:41 | RAD REPORT ---
EXAM DESCRIPTION: RAD - Foot Right 3 View - 04/24/2019 7:26 pm CLINICAL HISTORY: Foot pain COMPARISON: None. FINDINGS: No fracture, dislocation or periosteal reaction. No acute bone or joint finding. No air or foreign body in the soft tissues. IMPRESSION: Negative right foot examination.
--- NOTE | 2019-04-24 19:48 | ER ---
Nurse's Notes [facility] Name: Kitty Tucker Age: 34 yrs Sex: Female : 1985 Arrival Date: 04/24/2019 Time: 18:13 Bed 18 Private MD: Reynold Larson E Diagnosis: Pain in right foot Presentation: 04/24 18:31 Presenting complaint: Slipped while stepping out of truck at 1645, c/o right foot pain hb 8/10, unable to bear weight on right foot.. Pt reports she is 34 weeks , denies other injuries/abdominal pain. Transition of care: patient was not received from another setting of care. Onset of symptoms was April 24, 2019. Risk Assessment: Do you want to hurt yourself or someone else? Patient reports no desire to harm self or others. Initial Sepsis Screen: Does the patient meet any 2 criteria? No. Patient's initial sepsis screen is negative. Does the patient have a suspected source of infection? No. Patient's initial sepsis screen is negative. Care prior to arrival: Medication(s) given: Tylenol, at 1700. 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 - Social history:: Smoking status: Patient/guardian denies using tobacco. - Ebola Screening: : No symptoms or risks identified at this time. Screenin:50 Abuse screen: Denies threats or abuse. Nutritional screening: No deficits noted. em Tuberculosis screening: No symptoms or risk factors identified. Fall Risk None identified. Assessment: 18:50 General: Appears in no apparent distress. comfortable, Behavior is calm, cooperative. em Pain: Complains of pain in right foot Pain currently is 8 out of 10 on a pain scale. Neuro: Level of Consciousness is awake, alert, obeys commands, Oriented to person, place, time, situation. Cardiovascular: Capillary refill < 3 seconds Patient's skin is warm and dry. Respiratory: Airway is patent Respiratory effort is even, unlabored, Respiratory pattern is regular, symmetrical. GI: Abdomen is round non-distended. Derm: Skin is intact, is healthy with good turgor, Skin is pink, warm \T\ dry. Musculoskeletal: Capillary refill < 3 seconds, Range of motion: intact in right ankle Swelling present in right foot. 18:50 Reassessment: I agree with assessment completed by Darien Guido LVN. aa5 19:15 General: Appears in no apparent distress. comfortable, Behavior is calm, cooperative, rr5 appropriate for age. 19:15 Pain: Complains of pain in right ankle Pain does not radiate. Pain currently is 8 out rr5 of 10 on a pain scale. Quality of pain is described as aching, Pain began suddenly, Is intermittent. Neuro: Level of Consciousness is awake, alert, obeys commands, Oriented to person, place, time, situation, Appropriate for age. Cardiovascular: Capillary refill < 3 seconds Patient's skin is warm and dry. Respiratory: Airway is patent Respiratory effort is even, unlabored, Respiratory pattern is regular, symmetrical. GI: Abdomen is round. : No signs and/or symptoms were reported regarding the genitourinary system. Reports 8 months . EENT: No signs and/or symptoms were reported regarding the EENT system. Derm: Skin is intact, is healthy with good turgor, Skin is pink, warm \T\ dry. Skin temperature is warm. Musculoskeletal: Circulation, motion, and sensation intact. Capillary refill < 3 seconds, Swelling present in right ankle Reports pain in right ankle. 20:15 Reassessment: Patient appears in no apparent distress at this time. Patient is alert, rr5 oriented x 3, equal unlabored respirations, skin warm/dry/pink. discharge instruction given and explained without complaints made. Vital Signs: 18:33 BP 127 / 89; Pulse 97; Resp 16; Temp 98.5; Pulse Ox 100% on R/A; Weight 92.99 kg; hb Height 5 ft. 6 in. (167.64 cm); Pain 8/10; 19:05 BP 125 / 70; Pulse 85; Resp 19; Temp 98.4; Pulse Ox 98% ; rr5 20:16 BP 133 / 85; Pulse 90; Resp 17; Temp 98.4(O); Pulse Ox 99% ; rr5 18:33 Body Mass Index 33.09 (92.99 kg, 167.64 cm) hb Vitals: 19:28 Heart Tones 135 bpm. rr5 ED Course: 18:13 Patient arrived in ED. rg4 18:13 Reynold Larson MD is Private Physician. rg4 18:33 Triage completed. hb 18:33 Arm band placed on. hb 18:38 Kristy Costa FNP-C is [facility]. kb 18:38 Abhijit Armstrong MD is Attending Physician. kb 18:40 Darien Guido LVN is Primary Nurse. em 18:50 Patient has correct armband on for positive identification. Placed in gown. Bed in low em position. Adult w/ patient. 19:26 Foot Right 3 View XRAY In Process Unspecified. EDMS 19:30 Diet: Patient given snack. rr5 20:16 No provider procedures requiring assistance completed. Patient did not have IV access rr5 during this emergency room visit. Administered Medications: No medications were administered Outcome: 19:47 Discharge ordered by . kb 20:16 Discharged to home via wheelchair, with crutches, with family. rr5 20:16 Condition: stable 20:16 Discharge instructions given to patient, Instructed on discharge instructions, follow up and referral plans. crutch walking, Demonstrated understanding of instructions, follow-up care, crutch walking. 20:17 Patient left the ED. rr5 Signatures: Dispatcher [employer] EDAR Kristy Costa FNP-C POULTRY HUSBANDRY TEACHER-Keithb Darien Guido LVN LVN Renetta Ridley RN RN aa5 Debra Dawn RN RN Carla Coleman rg4 Orlando Santana RN RN rr5 Corrections: (The following items were deleted from the chart) 18:34 18:31 Presenting complaint: Slipped while stepping out of truck at 1645, c/o right foot hb pain 8/10, unable to bear weight on right foot. hb
--- NOTE | 2019-04-24 19:48 | EDPHYS ---
Physician Documentation [facility] Name: Kitty Tucker Age: 34 yrs Sex: Female : 1985 Arrival Date: 04/24/2019 Time: 18:13 Bed 18 Private MD: Reynold Larson E ED Physician Abhijit Armstrong HPI: 04/25 03:10 This 34 yrs old Female presents to ER via Wheelchair with complaints of Fall kb Injury, Ankle Injury. 03:10 The patient has not experienced similar symptoms in the past. The patient has not kb recently seen a physician. 03:10 The patient presents with an injury, pain, swelling, tenderness. The complaints affect kb the right foot. Context: The problem was sustained outdoors, resulted from the patient tripping, the patient is not able to bear weight, the patient is not able to ambulate. Onset: The symptoms/episode began/occurred just prior to arrival. Modifying factors: The symptoms are alleviated by nothing, the symptoms are aggravated by weight bearing. Associated signs and symptoms: Pertinent positives: swelling, Pertinent negatives: calf tenderness, fever, nausea, numbness, rash, tingling, vomiting, warmth, weakness. Severity of symptoms: At their worst the symptoms were moderate, in the emergency department the symptoms are unchanged. Pt reports she was putting her daughter in the carseat and fell when she stepped back. Pain to right foot, unable to bear weight. PHARMACOEPIDEMIOLOGIST: 04/24 18:33 2, Full Term 1, Living 1 hb Historical: - Home Meds: 18:33 Vitamin Oral tab 1 tab once daily [Active]; hb - PMHx: 18:33 ADD/ADHD; hb - PSHx: 18:33 Appendectomy; hb - Immunization history:: Adult Immunizations up to date. - Social history:: Smoking status: Patient/guardian denies using tobacco. - Ebola Screening: : No symptoms or risks identified at this time. ROS: 04/25 03:10 Constitutional: Negative for fever, chills, and weight loss, Cardiovascular: Negative kb for chest pain, palpitations, and edema, Respiratory: Negative for shortness of breath, cough, wheezing, and pleuritic chest pain, Abdomen/GI: Negative for abdominal pain, nausea, vomiting, diarrhea, and constipation, Back: Negative for injury and pain, Skin: Negative for injury, rash, and discoloration, Neuro: Negative for headache, weakness, numbness, tingling, and seizure. MS/extremity: Positive for injury or acute deformity, ecchymosis, pain, swelling, tenderness, of the right foot. Exam: 03:10 Constitutional: This is a well developed, well nourished patient who is awake, alert, kb and in no acute distress. Head/Face: Normocephalic, atraumatic. Neck: Trachea midline, no thyromegaly or masses palpated, and no cervical lymphadenopathy. Supple, full range of motion without nuchal rigidity, or vertebral point tenderness. No Meningismus. Chest/axilla: Normal chest wall appearance and motion. Nontender with no deformity. No lesions are appreciated. Cardiovascular: Regular rate and rhythm with a normal S1 and S2. No gallops, murmurs, or rubs. Normal PMI, no JVD. No pulse deficits. Respiratory: Lungs have equal breath sounds bilaterally, clear to auscultation and percussion. No rales, rhonchi or wheezes noted. No increased work of breathing, no retractions or nasal flaring. Abdomen/GI: Soft, non-tender, with normal bowel sounds. No distension or tympany. No guarding or rebound. No evidence of tenderness throughout. Skin: Warm, dry with normal turgor. Normal color with no rashes, no lesions, and no evidence of cellulitis. Neuro: Awake and alert, GCS 15, oriented to person, place, time, and situation. Cranial nerves II-XII grossly intact. Motor strength 5/5 in all extremities. Sensory grossly intact. Cerebellar exam normal. Normal gait. 03:10 Musculoskeletal/extremity: Extremities: grossly normal except: noted in the right foot: ecchymosis, pain, swelling, tenderness, ROM: intact in all extremities, Circulation is intact in all extremities. Sensation intact. Weight bearing: is unable to bear weight. Vital Signs: 04/24 18:33 BP 127 / 89; Pulse 97; Resp 16; Temp 98.5; Pulse Ox 100% on R/A; Weight 92.99 kg; hb Height 5 ft. 6 in. (167.64 cm); Pain 8/10; 19:05 BP 125 / 70; Pulse 85; Resp 19; Temp 98.4; Pulse Ox 98% ; rr5 20:16 BP 133 / 85; Pulse 90; Resp 17; Temp 98.4(O); Pulse Ox 99% ; rr5 18:33 Body Mass Index 33.09 (92.99 kg, 167.64 cm) hb MDM: 18:39 Patient medically screened. kb 04/25 03:12 Data reviewed: vital signs, nurses notes. Data interpreted: Pulse oximetry: on room air kb is 99 %. Interpretation: normal. Counseling: I had a detailed discussion with the patient and/or guardian regarding: the historical points, exam findings, and any diagnostic results supporting the discharge/admit diagnosis, radiology results, the need for outpatient follow up, a orthopedic surgeon, to return to the emergency department if symptoms worsen or persist or if there are any questions or concerns that arise at home. 04/24 18:43 Order name: Foot Right 3 View XRAY; Complete Time: 19:46 kb 04/24 18:43 Order name: FHT's; Complete Time: 19:29 kb Administered Medications: No medications were administered Disposition: 04/24/19 19:47 Discharged to Home. Impression: Pain in right foot. - Condition is Stable. - Discharge Instructions: Foot Sprain, Foot Contusion, [id number]. - Medication Reconciliation Form, Thank You Letter, Antibiotic Education, Prescription Opioid Use, Work release form form. - Follow up: Emergency Department; When: As needed; Reason: Worsening of condition. Follow up: Private Physician; When: 2 - 3 days; Reason: Recheck today's complaints, Continuance of care, Re-evaluation by your physician. Addendum: 04/27/2019 09:07 Co-signature as Attending Physician, Abhijit Armstrong MD I agree with the assessment and k dr plan of care. Signatures: Dispatcher [employer] Kristy Costa, GERENTOLOGICAL PHYSIOTHERAPIST-C GERENTOLOGICAL PHYSIOTHERAPIST-CkAbhijit Deleon MD MD [facility] Debra Dawn, WALE RN Orlando Whitney, WALE RN rr5 Corrections: (The following items were deleted from the chart) 04/24 20:17 19:47 04/24/2019 19:47 Discharged to Home. Impression: Pain in right foot. Condition is rr5 Stable. Forms are Medication Reconciliation Form, Thank You Letter, Antibiotic Education, Prescription Opioid Use. Follow up: Emergency Department; When: As needed; Reason: Worsening of condition. Follow up: Private Physician; When: 2 - 3 days; Reason: Recheck today's complaints, Continuance of care, Re-evaluation by your physician. kb
[2019-04-24 20:41] VITALS: TEMP 98.4
[2019-04-24 20:42] VITALS: BP 133/85; O2SAT 99
== END 2019-04-24 20:17 | disposition home or self-care (01) ==
LOC: ER 18:11
DX: M79.671 Pain in right foot (principal); F90.9 Attention-deficit hyperactivity disorder, unspecified type
CPT/HCPCS: 99284

== ENCOUNTER 2019-05-27 23:11 | Inpatient (IN) | payer BC ==
[2019-05-27] MEDS ORDERED: Ringers Lactate 1,000 ML IV SCH (23:45)
[2019-05-27] MEDS ORDERED: PROMETHAZINE 25 MG/ML VIAL IM PRN (23:59)
[2019-05-27] MEDS ORDERED: BUTORPHANOL 1 MG/ML INJ IV PRN (23:59)
[2019-05-27] MEDS ORDERED: MIDAZOLAM HCL 2 MG/2 ML INJ IV PRN (23:59)
[2019-05-27] MEDS ORDERED: Ringers Lactate 1,000 ML IV PRN (23:59)
[2019-05-27] MEDS ORDERED: MEPERIDINE HCL 25 MG/0.5 ML IV PRN (23:59)
[2019-05-27] MEDS ORDERED: METHYLERGONOVINE 0.2MG/ML AMP IM PRN (23:59)
[2019-05-28] MEDS ORDERED: ROPIVACAINE HCL 100 ML IV PRN (00:18)
[2019-05-28] MEDS ORDERED: FENTANYL CITR 100 MCG/2 ML IV ONE (00:18)
[2019-05-28] MEDS ORDERED: ROPIVACAINE HCL 2 MG/ML 100ML IV ONE (00:19)
[2019-05-28 00:21] LABS: Absolute Lymphocytes (CBC) 2.4 K/uL (0.7-4.9); Basophils % 0.6 % (0-1.3); Hematocrit 35.3 % (36.0-45.0); Lymphocytes % 18.4 % (15.3-44.8); MPV 9.7 fL (7.6-11.3); RBC Red Blood Cell Count 3.96 M/uL (3.86-4.86); Urine Appearance CLEAR; Urine Bilirubin NEGATIVE (NEG); Urine Blood NEGATIVE (NEG); Urine Color YELLOW; Urine Glucose NEGATIVE (NEG); Urine Protein NEGATIVE (NEG); Urine Specific Gravity <=1.005 (1.005-1.030); Urine Urobilinogen 0.2 mg/dL (0.2-1.0); Urine pH 6.5 (5.0-7.0)
[2019-05-28 00:23] LABS: Urine Microscopic Reflex NO UMIC
[2019-05-28 00:34] VITALS: BMI 34.3
[2019-05-28] MEDS ORDERED: OXYTOCIN/LR 20 UNIT/1,000 ML BAG IV ONE (02:53)
[2019-05-28] MEDS ORDERED: LIDOCAINE 1% MPF 30 ML VIAL ONE (03:37)
[2019-05-28] MEDS ORDERED: DIPHENHYDRAMINE 25 MG TAB/CAP PO PRN (04:53)
[2019-05-28] MEDS ORDERED: ACETAMINOPHEN 500 MG TAB PO PRN (04:53)
[2019-05-28] MEDS ORDERED: IBUPROFEN 200 MG TAB PO PRN (04:53)
[2019-05-28] MEDS ORDERED: DOCUSATE NA/SENNA CONC 1 TAB PO PRN (04:53)
[2019-05-28] MEDS ORDERED: BISACODYL 10 MG RECTAL SUPP RECT PRN (04:53)
[2019-05-28] MEDS ORDERED: Oxycodone HCl/Acetaminophen 1 TAB TAB PO PRN ×2 (04:53)
[2019-05-28] MEDS ORDERED: OXYTOCIN/LR 20 UNIT/1,000 ML BAG IV SCH (05:00)
--- NOTE | 2019-05-28 12:32 | PN ---
A 34-year-old 3, para 1, 38 weeks and 4 days on admission. Early labor, 4 cm, 70% effaced, v ertex, -1 station. Rh positive, immune to rubella. Negative beta strep screen. Elisa regular ly and admitted for delivery. Patient has progressed to complete. She had an epidural placed when s he was about 5 cm. Rupture of membranes was performed. Clear fluid. Patient is still at about 0 st ation and cannot feel to push. The epidural is at 10, maintenance. We will move it to 8 and see if she gets some sensation so she can push effectively and get the baby out right now. We will wait for her to labor the baby down. DOT/ABIMBOLA Voice ID: [id number] Report ID: [id number]
--- NOTE | 2019-05-28 12:35 | OP ---
Surgeon: Demar Maldonado MD This 34-year-old, 3, para 1, 38 weeks 5 days, Rh positive, immune to rubella. Negative beta strep screen. Came in labor, 4 cm on admission. During the labor, received epidural anesthesia at h er request. Second stage of approximately 30 minutes. Spontaneous vaginal delivery of a 7 pounds 12 ounce female. Apgars 9 and 9. Small second-degree midline laceration, sutured with 2-0 chromic. D uncan delivery of the placenta, which was inspected and noted to be intact and normal. A 300 cc or l ess blood loss. The patient tolerated all procedures well. Final Diagnoses: Intrauterine gestation, 38 weeks 5 days, spontaneous labor, vaginal delivery, epidu ral anesthesia. DOT/ABIMBOLA Voice ID: [id number] Report ID: [id number]
[2019-05-28 21:45] LABS: RPR (Rapid Plasma Reagin) NON-REACT (NON-REACT)
--- NOTE | 2019-05-29 06:15 | DS ---
Hospital Course: A 34-year-old 3, para 1, at 38 weeks 4 days on admission, 38 weeks 5 days o n delivery, came in active labor. During the labor, requested and received epidural anesthesia. Del desmond spontaneously of a 7-pound 12-ounce female. Apgars 9 and 9. A very small second-degree lacera tion, repaired with 2-0 chromic. Zhao delivery of the placenta. Estimated blood loss 300 mL. Lakhwinder centa inspected and noted be intact and normal. , afebrile, ambulating and voiding. Will be dismissed tomorrow morning to report back to my office in 6 weeks for followup, to report any temp erature elevation of 100 degrees or greater, severe pain, heavy bleeding, or any other type of abnorm alities. No post-epidural problems. She is Rh positive. Immune to Rubella. Tdap has been discusse d during the and offered. 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 Final Diagnoses: Term intrauterine at 38 weeks 5 days, spontaneous labor and delivery, epi dural anesthesia. DOT/ABIMBOLA Voice ID: [id number] Report ID: [id number]
--- NOTE | 2019-05-29 09:12 | PN ---
We went over dismissal instructions again today. Flu shot offered. She can come to the office since the hospital does not have them yet. No complaints or problems from yesterday. She knows she has prescription for analgesics if she wants it. Says she is having some mild after pains, but no other problems. Lochia is normal. Doing well . Dismissal summary has been dictated. DOT/ABIMBOLA Voice ID: [id number] Report ID: [id number]
[2019-05-29 09:35] VITALS: BP 116/72; TEMP 98.1
[2019-05-29] MEDS ORDERED: Tdap (Diph,Pertuss(Acell),Tet Vac) 0.5 ML SYR IMVAC ONE (11:24)
[2019-06-01 03:29] LABS: HBsAG Nonreactive (Nonreactive)
== END 2019-05-29 11:50 | disposition home or self-care (01) | DRG 807 ==
LOC: L&D 23:11 → 2ND-WC 05-28 00:02
PROVIDERS: ADMIT Specialist; ATTEND Specialist
PROC: 10907ZC Drainage of Amniotic Fluid, Therapeutic from Products of Conception, Via Natural or Artificial Opening (ICD-10-PCS; principal; 2019-05-28)
PROC: 10E0XZZ Delivery of Products of Conception, External Approach (ICD-10-PCS; 2019-05-28)
PROC: 0KQM0ZZ Repair Perineum Muscle, Open Approach (ICD-10-PCS; 2019-05-28)
DX: O70.1 Second degree perineal laceration during delivery (principal); Z37.0 Single live birth; Z3A.38 38 weeks gestation of pregnancy; Z23 Encounter for immunization
CPT/HCPCS: 36415; 81003; 85025; 86592; 86850; 86900; 86901; 87340; 90471; 90715; J2210; J2590; J2795; J3010